=== PATIENT | female | born 1940 | race Caucasian/White ===

== ENCOUNTER 2017-01-01 18:57 | Emergency (ER) | payer OTHER ==
[2017-01-01] MEDS ORDERED: ASPIRIN 81 MG CHEWABLE TABLETS PO ONE (19:22)
--- NOTE | 2017-01-01 19:22 | PDOC ---
History of Present Illness <AnabelleMorenita - Last Filed: 01/01/17 21:16> <Valerie Vera Sasha - Last Filed: 01/02/17 01:47> - General Chief Complaint: Chest Pain Stated Complaint: CHEST PAIN - History of Present Illness Initial Comments: 01/01/17 21:01 Patient is a 76 year old female with significant medical hx of asthma, HTN and HLD who is presenting to the ED with chest pain and cough intermittently for the past two weeks. Patient is accompanied by daughter who reports the patient has been having a dry, hacking cough that has caused exacerbation of her asthma. The patient recently finished a ten day course of Levaquin and prednisone for her cough but is still experiencing symptoms. The patient also complains of progressive chest pain thats non-radiating and localized across her entire chest. She states that her chest pain reoccurs every 15 minutes. The patient came to the ED tonight because her pain worsened this afternoon. Denies nausea, vomiting, shortness of breath, fever, chills, and diaphoresis. Patient's last stress test and echocardiogram was last year. Allergies: Benadryl Surgical Hx: bilateral carpal tunnel, hysterectomy Social Hx: Denies tobacco, alcohol, or drug use PMD: Michelle Saucedo MD Oral Surgeon: Brian Chu MD (AnabelleMorenita) Past History <Morenita Ahn - Last Filed: 01/01/17 21:16> - Past Medical History Asthma: Yes Diabetes: Yes (steroids induced) HTN: Yes Hypercholesterolemia: Yes Other medical history: arithritis - Immunization History Immunization Up to Date: No - Psycho/Social/Smoking Cessation Hx Anxiety: Yes Suicidal Ideation: No Smoking History: Never smoked Have you smoked in the past 12 months: No Number of Cigarettes Smoked Daily: 0 Cigars Per Day: 0 Information on smoking cessation initiated: No Hx Alcohol Use: No Drug/Substance Use Hx: No Substance Use Type: None <ChuyJonkelsey Baez - Last Filed: 01/02/17 01:47> - Past Medical History Allergies/Adverse Reactions: Allergies Allergy/AdvReac Type Severity Reaction Status Date / Time diphenhydramine HCl Allergy Verified 01/01/17 19:05 [From Benadryl] Home Medications: Ambulatory Orders Albuterol 2.5/Ipratropium 0.5 [Duoneb -] 1 neb NEB Q4H 01/01/17 Amlodipine Besylate [Norvasc -] 10 mg PO DAILY 01/01/17 Atorvastatin Calcium [Lipitor] 10 mg PO DAILY 01/01/17 Glipizide 5 mg PO DAILY 01/01/17 Metoprolol Tartrate 25 mg PO DAILY 01/01/17 Review of Systems <Morenita Ahn - Last Filed: 01/01/17 21:16> <Valerie Vera - Last Filed: 01/02/17 01:47> - Review of Systems Comments:: 01/01/17 21:10 CONSTITUTIONAL: Absent: fever, chills, diaphoresis, generalized weakness, malaise, loss of appetite HEENT: Absent: rhinorrhea, nasal congestion, throat pain, throat swelling, difficulty swallowing, mouth swelling, ear pain, eye pain, visual changes CARDIOVASCULAR: Present: chest pain Absent: syncope, palpitations, irregular heart rate, lightheadedness, peripheral edema RESPIRATORY: Present: dry cough Absent: shortness of breath, dyspnea with exertion, orthopnea, wheezing, stridor , hemoptysis GASTROINTESTINAL: Absent: abdominal pain, abdominal distension, nausea, vomiting, diarrhea, constipation, melena, hematochezia GENITOURINARY: Absent: dysuria, frequency, urgency, hesitancy, hematuria, flank pain, genital pain MUSCULOSKELETAL: Absent: myalgia, arthralgia, joint swelling SKIN: Absent: rash, itching, pallor HEMATOLOGIC/IMMUNOLOGIC: Absent: easy bleeding, easy bruising, lymphadenopathy, frequent infections ENDOCRINE: Absent: unexplained weight gain, unexplained weight loss, heat intolerance, cold intolerance NEUROLOGIC: Absent: headache, focal weakness or paresthesia, dizziness, unsteady gait, seizure, mental status changes, bladder or bowel incontinence. PSYCHIATRIC: Absent: anxiety, depression, suicidal or homicidal ideation, hallucinations (Morenita Ahn) *Physical Exam <Morenita Ahn - Last Filed: 01/01/17 21:16> <Valerie Vera - Last Filed: 01/02/17 01:47> - Vital Signs Last Vital Signs Temp Pulse Resp BP Pulse Ox 98.8 F 75 22 157/79 96 01/01/17 19:24 01/01/17 19:24 01/01/17 19:24 01/01/17 19:24 01/01/17 19:24 - Physical Exam Comments: 01/01/17 21:11 GENERAL: Well developed, well nourished. Awake and alert. No acute distress. HEENT: Normocephalic, atraumatic. PERRLA, EOMI. No conjunctival pallor. Sclera are non- icteric. Moist mucous membranes. Oropharynx is clear. NECK: Supple. Full ROM. No JVD. Carotid pulses 2+ and symmetric, without bruits. No thyromegaly. No lymphadenopathy. CARDIOVASCULAR: Regular rate and rhythm. No murmurs, rubs, or gallops. No bruits. Distal pulses are 2+ and symmetric. PULMONARY: No evidence of respiratory distress. Minimal expiratory wheeze to the right. No rales or rhonchi. ABDOMINAL: Soft. Non-tender. Non-distended. No rebound or guarding. No organomegaly. Normoactive bowel sounds. MUSCULOSKELETAL: Normal range of motion at all joints. No bony deformities or tenderness. No CVA tenderness. EXTREMITIES: No cyanosis. No clubbing. No edema. No calf tenderness. SKIN: Warm and dry. Normal capillary refill. No rashes. No jaundice. NEUROLOGICAL: Alert, awake, appropriate. Cranial nerves 2-12 intact. Normal speech. Gait is normal without ataxia. PSYCHIATRIC: Cooperative. Good eye contact. Appropriate mood and affect. (Morenita Ahn) Heart Score/ECG Review <Morenita Ahn - Last Filed: 01/01/17 21:16> <Valerie Vera - Last Filed: 01/02/17 01:47> #1 01/01/17 21:26 Poor data quality, interpretation may be adversely affected Normal sinus rhythm at 82 bpm Left axis deviation Abnormal ECG (Morenita Ahn) ED Treatment Course - LABORATORY CBC & Chemistry Diagram: 01/01/17 20:40 01/01/17 20:40 <Morenita Ahn - Last Filed: 01/01/17 21:16> - LABORATORY CBC & Chemistry Diagram: 01/01/17 20:40 01/01/17 20:40 <Valerie Vera - Last Filed: 01/02/17 01:47> - ADDITIONAL ORDERS Additional order review: Laboratory Results 01/02/17 01/01/17 01/01/17 00:48 20:40 20:40 INR Sodium 137 Potassium 4.0 Chloride 99 Carbon Dioxide 32 Anion Gap 6 L BUN 13 Creatinine 0.9 Creat Clearance w eGFR > 60 Random Glucose 156 H D Calcium 9.5 Magnesium 1.7 L Total Bilirubin 0.3 D AST 13 L ALT 25 Alkaline Phosphatase 112 D Creatine Kinase 49 49 Troponin I < 0.02 < 0.02 B-Natriuretic Peptide 103.01 Total Protein 6.9 Albumin 3.6 01/01/17 20:40 INR 1.12 Sodium Potassium Chloride Carbon Dioxide Anion Gap BUN Creatinine Creat Clearance w eGFR Random Glucose Calcium Magnesium Total Bilirubin AST ALT Alkaline Phosphatase Creatine Kinase Troponin I B-Natriuretic Peptide Total Protein Albumin 01/01/17 20:40 RBC 4.21 MCV 85.1 MCHC 33.9 RDW 14.1 MPV 7.6 Neutrophils % 62.9 D Lymphocytes % 20.1 D Monocytes % 9.6 Eosinophils % 7.0 H D Basophils % 0.4 - RADIOLOGY Radiology Studies Ordered: Category Date Time Status CHEST X-RAY PORTABLE* [RAD] Stat Radiology 01/01/17 19:23 Taken - Medications Given in the ED: ED Medications Discontinued Medications Generic Name Dose Route Start Last Admin Trade Name Freq PRN Reason Stop Dose Admin Albuterol/Ipratropium 1 amp 01/01/17 20:27 01/01/17 20:45 Duoneb - NEB 01/01/17 20:28 1 amp ONCE ONE Administration Aspirin 162 mg 01/01/17 19:22 01/01/17 20:21 Asa - PO 01/01/17 19:23 162 mg ONCE ONE Administration Magnesium Sulfate 1 gm 01/02/17 00:31 01/02/17 01:25 Magnesium Sulfate IVPB 01/02/17 00:32 1 gm ONCE ONE Administration *DC/Admit/Observation/Transfer <Morenita Ahn - Last Filed: 01/01/17 21:16> <Valerie Vera - Last Filed: 01/02/17 01:47> Diagnosis at time of Disposition: Chest pain Qualifiers: Chest pain type: unspecified Qualified Code(s): R07.9 - Chest pain, unspecified - Discharge Dispostion Disposition: HOME Condition at time of disposition: Stable - Patient Instructions Printed Discharge Instructions: DI for Atypical Chest Pain Additional Instructions: please follow up with your primary physician - Attestations Scribe Attestion: 01/01/17 21:13 Documentation prepared by Morenita Ahn, acting as biomedical service engineer for Valerie Vera MD. (Morenita Ahn)
[2017-01-01] MEDS ORDERED: ASPIRIN 81 MG CHEWABLE TABLETS ONE (19:41)
[2017-01-01 20:00] VITALS: BP 157/79; PULSE 75; TEMP 98.8; BMI 24.8
[2017-01-01] MEDS ORDERED: ALBUTEROL SO4 2.5/IPRATROPIUM 0.5 INH SOL 3 ML VIAL.NEB. NEB ONE ×2 (20:27→20:46)
[2017-01-01 20:53] LABS: BASOPHIL 0.4 % (0-2.0); MCH 28.9 pg (25.7-33.7); MCHC 33.9 g/dl (32.0-36.0); MEAN CELL VOLUME 85.1 fl (80-96); MEAN PLT VOLUME 7.6 fl (7.5-11.1); NEUTROPHILS 62.9 % (42.8-82.8); PLATELET COUNT 266 K/MM3 (134-434); RDW 14.1 % (11.6-15.6); WHITE BLOOD COUNT 11.2 K/mm3 (4.0-10.0)
[2017-01-01 21:12] LABS: INR 1.12 (0.82-1.09); PROTHROMBIN TIME (PATIENT) 12.4 SEC (9.98-11.88)
[2017-01-01 21:21] LABS: ALBUMIN 3.6 g/dl (3.4-5.0); ANION GAP 6 (8-16); CALCIUM 9.5 mg/dL (8.5-10.1); CO2 32 mmol/L (21-32); CREATININE 0.9 mg/dL (0.55-1.02); GLUCOSE,RANDOM 156 mg/dL (74-106); MAGNESIUM 1.7 mg/dL (1.8-2.4); SGOT/AST 13 U/L (15-37); SGPT/ALT 25 U/L (12-78)
[2017-01-01 21:25] LABS: ALK PHOS 112 U/L (45-117); BILIRUBIN,TOTAL 0.3 mg/dL (0.2-1.0); TOT PROT 6.9 g/dl (6.4-8.2); TROPONIN I < 0.02 ng/ml (0.00-0.05)
[2017-01-02] MEDS ORDERED: MAGNESIUM SULF 50% (8.12 MEQ/2 ML-1 GM VIAL) IVPB ONE (00:31)
[2017-01-02] MEDS ORDERED: MAGNESIUM SULF 50% (8.12 MEQ/2 ML-1 GM VIAL) ONE (01:15)
[2017-01-02 01:30] LABS: TROPONIN I < 0.02 ng/ml (0.00-0.05)
[2017-01-02] MEDS ORDERED: ALBUTEROL SO4 0.083% IH SOL 2.5 MG/3 ML VIAL.NEB. NEB ONE (01:56)
--- NOTE | 2017-01-02 13:17 | EKG ---
Test Reason : Blood Pressure : / mmHG Vent. Rate : 082 BPM Atrial Rate : 082 BPM P-R Int : 154 ms QRS Dur : 092 ms QT Int : 330 ms P-R-T Axes : 062 -32 054 degrees QTc Int : 385 ms NORMAL SINUS RHYTHM LEFT AXIS DEVIATION ABNORMAL ECG WHEN COMPARED WITH ECG OF 12-JAN-2016 05:33, Confirmed by NICOLE DELEON MD ([id number]) on 01/02/2017 1:16:50 PM Referred By: Confirmed By:NICOLE DELEON MD
== END 2017-01-02 02:33 | disposition home or self-care (01) ==
LOC: JER 18:57
PROC: 3E0F7GC Introduction of Other Therapeutic Substance into Respiratory Tract, Via Natural or Artificial Opening (ICD-10-PCS; principal; 2017-01-01)
PROC: 3E033GC Introduction of Other Therapeutic Substance into Peripheral Vein, Percutaneous Approach (ICD-10-PCS; 2017-01-01)
DX: R07.89 Other chest pain (principal); I10 Essential (primary) hypertension; E78.00 Pure hypercholesterolemia, unspecified; M12.9 Arthropathy, unspecified; E09.9 Drug or chemical induced diabetes mellitus without complications; T38.0X5A Adverse effect of glucocorticoids and synthetic analogues, initial encounter; Y92.89 Other specified places as the place of occurrence of the external cause; Z79.84 Long term (current) use of oral hypoglycemic drugs
CPT/HCPCS: 36415; 71010-TC; 80053; 82550; 83735; 83880; 84484; 85025; 85610; 93005; 93010; 94640; 96374; 96375; 99282-25

== ENCOUNTER 2017-12-25 12:30 | Emergency (ER) | payer OTHER ==
[2017-12-25 12:46] VITALS: TEMP 98.5; BMI 25.9
[2017-12-25 14:16] LABS: URINE APPEARANCE CLEAR; URINE BILIRUBIN NEGATIVE (NEGATIVE); URINE BLOOD NEGATIVE (NEGATIVE); URINE COLOR YELLOW; URINE GLUCOSE (UA) NEGATIVE (NEGATIVE); URINE KETONE NEGATIVE (NEGATIVE); URINE LEUK ESTERASE TRACE (NEGATIVE); URINE NITRITE NEGATIVE (NEGATIVE)
[2017-12-25 14:17] LABS: URINE PROTEIN 1+ (NEGATIVE)
[2017-12-25 14:18] LABS: BASO % 0.6 % (0-2.0); EOS % 2.1 % (0-4.5); HEMATOCRIT 37.7 % (32.4-45.2); HEMOGLOBIN 12.2 GM/dL (10.7-15.3); LYMPH % 10.6 % (8-40); MCH 28.5 pg (25.7-33.7); MCHC 32.5 g/dl (32.0-36.0); MEAN CELL VOLUME 87.9 fl (80-96); MEAN PLT VOLUME 8.1 fl (7.5-11.1); MONO % 7.6 % (3.8-10.2); NEUT % 79.1 % (42.8-82.8); PLATELET COUNT 292 K/MM3 (134-434); RBC 4.29 M/mm3 (3.60-5.2); RDW 13.4 % (11.6-15.6); WHITE BLOOD COUNT 13.1 K/mm3 (4.0-10.0)
--- NOTE | 2017-12-25 14:18 | PDOC ---
History of Present Illness - General History Source: Patient - History of Present Illness Initial Comments: 12/25/17 14:13 77F with pmh of HTN, HLD and DM2 transfered from [facility] to the ER following a fall on the back of the head after she jumping on a stool trying to reach an overhead object and losing her footing. She fell backward and hit the back of her head. No LOC, no nausea, vomiting or focal deficits. Denies feeling dizzy or lightheaded. <Gera Mckeon - Last Filed: 12/25/17 14:13> <Yesika Mays - Last Filed: 12/25/17 15:37> - General Chief Complaint: Injury Stated Complaint: FALL Time Seen by Provider: 12/25/17 13:13 Past History - Past Medical History Asthma: Yes COPD: No Diabetes: Yes (steroids induced) HTN: Yes Hypercholesterolemia: Yes - Immunization History Immunization Up to Date: No - Suicide/Smoking/Psychosocial Hx Smoking History: Never smoked Have you smoked in the past 12 months: No Number of Cigarettes Smoked Daily: 0 Cigars Per Day: 0 Information on smoking cessation initiated: No Hx Alcohol Use: No Drug/Substance Use Hx: No Substance Use Type: None <Gera Mckeon - Last Filed: 12/25/17 14:13> <Yesika Mays - Last Filed: 12/25/17 15:37> - Past Medical History Allergies/Adverse Reactions: Allergies Allergy/AdvReac Type Severity Reaction Status Date / Time diphenhydramine HCl Allergy Verified 12/25/17 12:46 [From Benadryl] Home Medications: Ambulatory Orders Albuterol 2.5/Ipratropium 0.5 [Duoneb -] 1 neb NEB Q4H 01/01/17 Amlodipine Besylate [Norvasc -] 10 mg PO DAILY 01/01/17 Atorvastatin Calcium [Lipitor] 10 mg PO DAILY 01/01/17 Glipizide 5 mg PO DAILY 01/01/17 Metoprolol Tartrate 25 mg PO DAILY 01/01/17 Review of Systems - Review of Systems Able to Perform ROS?: Yes Is the patient limited Japanese proficient: No Constitutional: No: Symptoms Reported HEENTM: No: Symptoms Reported Respiratory: No: Symptoms reported Cardiac (ROS): No: Symptoms Reported ABD/GI: No: Symptoms Reported : No: Symptoms Reported Musculoskeletal: No: Symptoms Reported Integumentary: No: Symptoms Reported Neurological: No: Symptoms reported All Other Systems: Reviewed and Negative <Gera Mckeon - Last Filed: 12/25/17 14:13> *Physical Exam - Vital Signs Last Vital Signs Temp Pulse Resp BP Pulse Ox 98.5 F 75 18 148/78 100 12/25/17 12:41 12/25/17 12:41 12/25/17 12:41 12/25/17 12:41 12/25/17 12:41 - Physical Exam General Appearance: Yes: Nourished, Appropriately Dressed. No: Apparent Distress HEENT: positive: EOMI, SHA, Other (small bump on back of head. No skin break.) Respiratory/Chest: positive: Lungs Clear, Normal Breath Sounds. negative: Chest Tender, Respiratory Distress Cardiovascular: positive: Regular Rhythm, Regular Rate, S1, S2 Gastrointestinal/Abdominal: positive: Normal Bowel Sounds, Flat, Soft. negative : Tender Musculoskeletal: positive: Normal Inspection. negative: CVA Tenderness Extremity: positive: Normal Capillary Refill, Normal Inspection, Normal Range of Motion Integumentary: positive: Normal Color, Dry, Warm Neurologic: positive: Fully Oriented, Alert, Normal Mood/Affect, Normal Response , Motor Strength 5/5. negative: Confused, Disoriented <Gera Mckeon - Last Filed: 12/25/17 14:13> - Vital Signs Last Vital Signs Temp Pulse Resp BP Pulse Ox 98.5 F 75 18 148/78 100 12/25/17 12:41 12/25/17 12:41 12/25/17 12:41 12/25/17 12:41 12/25/17 12:41 <Yesika Mays - Last Filed: 12/25/17 15:37> ED Treatment Course - LABORATORY CBC & Chemistry Diagram: 12/25/17 13:22 12/25/17 13:22 <Gera Mckeon - Last Filed: 12/25/17 14:13> - LABORATORY CBC & Chemistry Diagram: 12/25/17 13:22 12/25/17 13:22 - ADDITIONAL ORDERS Additional order review: Laboratory Results 12/25/17 12/25/17 12/25/17 13:22 13:22 13:22 Sodium 139 Potassium 4.2 Chloride 103 Carbon Dioxide 30 Anion Gap 6 L BUN 16 Creatinine 0.8 Creat Clearance w eGFR > 60 Random Glucose 112 H Calcium 9.3 Total Bilirubin 0.4 D AST 20 ALT 25 Alkaline Phosphatase 121 H Creatine Kinase 108 Troponin I < 0.02 Total Protein 8.0 Albumin 4.4 Urine Color Yellow Urine Appearance Clear Urine pH 5.0 Ur Specific [place] 1.020 Urine Protein 1+ H Urine Glucose (UA) Negative Urine Ketones Negative Urine Blood Negative Urine Nitrite Negative Urine Bilirubin Negative Urine Urobilinogen 2.0 H Ur Leukocyte Esterase Trace Urine WBC (Auto) 1 Urine RBC (Auto) <1 Ur Epithelial Cells Rare Urine Mucus Rare Blood Type B POSITIVE Antibody Screen Negative 12/25/17 13:22 RBC 4.29 MCV 87.9 MCHC 32.5 RDW 13.4 MPV 8.1 Neutrophils % 79.1 D Lymphocytes % 10.6 D Monocytes % 7.6 Eosinophils % 2.1 Basophils % 0.6 <Yesika Mays - Last Filed: 12/25/17 15:37> Medical Decision Making - Medical Decision Making 12/25/17 14:22 Full workup ordered by [facility] pending including basic labs, EKG, head ct. UA negative <Gera Mckeon - Last Filed: 12/25/17 14:13> *DC/Admit/Observation/Transfer <Gera Mckeon - Last Filed: 12/25/17 14:13> - Discharge Dispostion Admit: No <Yesika Mays - Last Filed: 12/25/17 15:37> Diagnosis at time of Disposition: Head injury Qualifiers: Encounter type: initial encounter Qualified Code(s): S09.90XA - Unspecified injury of head, initial encounter - Discharge Dispostion Disposition: HOME Condition at time of disposition: Stable - Patient Instructions Printed Discharge Instructions: DI for Closed Head Injury
[2017-12-25 14:38] LABS: ALBUMIN 4.4 g/dl (3.4-5.0); ANION GAP 6 (8-16); BILIRUBIN,TOTAL 0.4 mg/dL (0.2-1.0); BLOOD UREA NITROGEN 16 mg/dL (7-18); CALCIUM 9.3 mg/dL (8.5-10.1); CHLORIDE 103 mmol/L (98-107); CO2 30 mmol/L (21-32); CREATININE 0.8 mg/dL (0.55-1.02); GLUCOSE,RANDOM 112 mg/dL (74-106); POTASSIUM 4.2 mmol/L (3.5-5.1); SGOT/AST 20 U/L (15-37); SGPT/ALT 25 U/L (12-78); SODIUM 139 mmol/L (136-145)
[2017-12-25 14:40] LABS: ALK PHOS 121 U/L (45-117)
[2017-12-25 14:45] LABS: INR 1.03 (0.82-1.09); PROTHROMBIN TIME (PATIENT) 11.6 SEC (9.98-11.88)
[2017-12-25 14:48] LABS: EPI CELLS RARE /HPF (FEW); URINE MUCUS RARE
--- NOTE | 2017-12-25 15:36 | PDOC ---
Attending Attestation - Resident Resident Name: MikeGera - ED Attending Attestation I have performed the following: I have examined & evaluated the patient, The case was reviewed & discussed with the resident, I agree w/resident's findings & plan, Exceptions are as noted <Yesika Mays - Last Filed: 12/25/17 15:36> - HPI HPI: 12/25/17 15:44 The patient is a 77 year old female with a significant PMH of HTN, HLD, and DM2 who presents to the emergency department after a fall today. The patient states she was on a stool trying to reach an object and fell backwards. The patient endorses head trauma but denies any other injuries. The patient denies LOC, dizziness, lightheadedness, chest pain, shortness of breath, and headache. Denies fever, chills, nausea, vomit, diarrhea and constipation. Denies dysuria, frequency, urgency and hematuria. Allergies: NKA Past surgical history: None reported Social history: No reported alcohol, drug or cigarette use. <Kirsten Campa - Last Filed: 12/25/17 15:46>
[2017-12-25 15:51] VITALS: BP 157/87; PULSE 70
--- NOTE | 2017-12-26 17:10 | EKG ---
Test Reason : Blood Pressure : / mmHG Vent. Rate : 066 BPM Atrial Rate : 066 BPM P-R Int : 152 ms QRS Dur : 098 ms QT Int : 392 ms P-R-T Axes : 066 -32 046 degrees QTc Int : 410 ms NORMAL SINUS RHYTHM LEFT AXIS DEVIATION ABNORMAL ECG WHEN COMPARED WITH ECG OF 01-JAN-2017 19:05, NO SIGNIFICANT CHANGE WAS FOUND Confirmed by JONO RING MD ([id number]) on 12/26/2017 5:09:59 PM Referred By: LINDA Confirmed By:JONO RING MD
== END 2017-12-25 15:56 | disposition home or self-care (01) ==
LOC: JER 12:30 → JERFT 12:30 → JER 15:56
DX: S09.8XXA Other specified injuries of head, initial encounter (principal); W07.XXXA Fall from chair, initial encounter; Y93.89 Activity, other specified; Y92.018 Other place in single-family (private) house as the place of occurrence of the external cause; I10 Essential (primary) hypertension; E78.00 Pure hypercholesterolemia, unspecified; E09.9 Drug or chemical induced diabetes mellitus without complications; T38.0X5A Adverse effect of glucocorticoids and synthetic analogues, initial encounter; Z79.84 Long term (current) use of oral hypoglycemic drugs
CPT/HCPCS: 36415; 70450-TC; 71045-TC-FY; 80053; 81003; 81015; 82550; 84484; 85025; 85610; 86850; 86900; 86901; 93005; 93010; 99283-25

== ENCOUNTER 2020-05-05 09:07 | Emergency (ER) | payer OTHER ==
--- NOTE | 2020-05-05 09:14 | PDOC ---
Rapid Medical Evaluation Time Seen by Provider: 05/05/20 09:11 Medical Evaluation: Allergies Allergy/AdvReac Type Severity Reaction Status Date / Time diphenhydramine HCl Allergy Verified 12/25/17 12:46 [From Benadryl] 05/05/20 09:11 Pt presents for evaluation of bleeding gums starting at 2:30 this am. She admits to aspirin use. Denies recent dental procedure. Did not take her aspirin today Exam: gauze in place to the R lower gum, airway intact Orders: labs Pt to proceed to the ER for further evaluation Discharge Disposition - Diagnosis Bleeding gums - Referrals - Patient Instructions - Post Discharge Activity
[2020-05-05 09:27] VITALS: BP 130/73; PULSE 77; TEMP 98.9; BMI 34.2
--- NOTE | 2020-05-05 10:01 | PDOC ---
History of Present Illness - General Chief Complaint: Toothache Stated Complaint: BLEEDING GUMS Time Seen by Provider: 05/05/20 09:11 History Source: Patient, Other (son) - History of Present Illness Is this a multiple visit Asthma Patient?: No Timing/Duration: resolved prior to arrival Past History - Medical History Allergies/Adverse Reactions: Allergies Allergy/AdvReac Type Severity Reaction Status Date / Time diphenhydramine HCl Allergy Verified 05/05/20 09:11 [From Benadryl] Home Medications: Ambulatory Orders Albuterol 2.5/Ipratropium 0.5 [Duoneb -] 1 neb NEB Q4H 01/01/17 Amlodipine Besylate [Norvasc -] 10 mg PO DAILY 01/01/17 Atorvastatin Calcium [Lipitor] 10 mg PO DAILY 01/01/17 Glipizide 5 mg PO DAILY 01/01/17 Metoprolol Tartrate 25 mg PO DAILY 01/01/17 Asthma: Yes COPD: No Diabetes: Yes (steroids induced) HTN: Yes Hypercholesterolemia: Yes - Immunization History Immunization Up to Date: No - Psycho-Social/Smoking History Smoking History: Never smoked Have you smoked in the past 12 months: No Number of Cigarettes Smoked Daily: 0 Cigars Per Day: 0 - Substance Abuse Hx (Audit-C & DAST Scrn) How often the patient has a drink containing alcohol: Never Score: In Men: 4 or > Positive; In Women: 3 or > Positive: 0 Screen Result (Pos requires Nsg. Audit-10AR): Negative In the last yr the pt used illegal drug/Rx for NonMed reason: No Score: Yes response is considered Positive: 0 Screen Result (Positive result requires Nsg. DAST-10): Negative Review of Systems - Review of Systems Constitutional: No: Weakness HEENTM: No: Mouth Pain *Physical Exam - Vital Signs Last Vital Signs Temp Pulse Resp BP Pulse Ox 98.9 F 77 20 130/73 98 05/05/20 09:12 05/05/20 09:12 05/05/20 09:12 05/05/20 09:12 05/05/20 09:12 - Physical Exam General Appearance: Yes: Appropriately Dressed. No: Apparent Distress HEENT: positive: Normal Voice, Other (blood clot along R lower gumline, no active bleed, R lower partial noted) Neck: positive: Supple Respiratory/Chest: negative: Respiratory Distress Integumentary: positive: Dry, Warm Neurologic: positive: Fully Oriented, Alert, Normal Mood/Affect ED Treatment Course - LABORATORY CBC & Chemistry Diagram: 05/05/20 09:30 05/05/20 09:30 Medical Decision Making - Medical Decision Making 05/05/20 09:56 79 yo F, HTN on baby asa, has lower dental partial in, BIB son for gum bleeding this am. Pt states R lower gum started spontaneously bleeding this am and has been on and off since, currently controlled w/ a piece of gauze to site. No trauma. No h/o same see exam Spon bleeding gums this am Since resolved On baby asa No trauma Stable w/ blood clot along R lower gum, at site of R lower partial Will check basic labs Son states pt will see her dentist today 05/05/20 10:41 Labs unremarkable. No active bleeding on reassessment. Clot in place. Per pt's son, to f/u with dentist today. Reasons to return d/w pt and son. Pt given copy of lab work Discharge - Discharge Information Problems reviewed: Yes Clinical Impression/Diagnosis: Bleeding gums Condition: Good Disposition: HOME - Follow up/Referral Referrals: Livia Hess MD [Primary Care Provider] - - Patient Discharge Instructions Additional Instructions: Please follow up with your dentist today and return to ED for any worsening in bleeding Your labs were normal - Post Discharge Activity
[2020-05-05 10:08] LABS: BASO % 0.5 % (0-2.0); EOS % 0.5 % (0-4.5); HEMATOCRIT 33.7 % (32.4-45.2); HEMOGLOBIN 11.1 GM/dL (10.7-15.3); LYMPH % 21.2 % (8-40); MCH 29.4 pg (25.7-33.7); MEAN CELL VOLUME 89.3 fl (80-96); MEAN PLT VOLUME 8.3 fl (7.5-11.1); MONO % 11.2 % (3.8-10.2); NEUT % 66.6 % (42.8-82.8); PLATELET COUNT 289 K/MM3 (134-434); RBC 3.77 M/mm3 (3.60-5.2); RDW 13.9 % (11.6-15.6); WHITE BLOOD COUNT 10.8 K/mm3 (4.0-10.0)
[2020-05-05 10:28] LABS: INR 0.97 (0.83-1.09); PROTHROMBIN TIME (PATIENT) 11.5 SEC (9.7-13.0)
[2020-05-05 10:39] LABS: ALBUMIN 3.9 g/dl (3.4-5.0); BILIRUBIN,TOTAL 0.5 mg/dL (0.2-1); BLOOD UREA NITROGEN 24.6 mg/dL (7-18); CALCIUM 9.3 mg/dL (8.5-10.1); POTASSIUM 3.9 mmol/L (3.5-5.1); TOT PROT 7.3 g/dl (6.4-8.2)
[2020-05-05 10:45] LABS: CREATININE 0.9 mg/dL (0.55-1.3)
== END 2020-05-05 10:45 | disposition home or self-care (01) ==
LOC: JER 09:07
DX: K06.8 Other specified disorders of gingiva and edentulous alveolar ridge (principal)
CPT/HCPCS: 36415; 80053; 85025; 85610; 99283-25

== ENCOUNTER 2021-11-12 14:34 | Emergency (ER) | payer OTHER | END 2021-11-12 14:50 | disposition home or self-care (01) | LOC: JVIRT 14:34 | DX: U07.1 COVID-19 (principal) | CPT/HCPCS: 87804; C9803-CS; Q3014-GT; U0003; U0005 ==

== ENCOUNTER 2025-06-02 11:17 | Emergency (ER) | payer OTHER ==
[2025-06-02 13:06] VITALS: BMI 19.2
[2025-06-02 13:40] LABS: MCHC 32.7 g/dl (32.2-35.5); MEAN CELL VOLUME 89.7 fl (79.4-94.8); MEAN PLT VOLUME 9.5 fl (9.4-12.3); RDW 13.1 % (12.5-17.0)
[2025-06-02 13:44] LABS: EPI CELLS 3 /uL (0-25.1); HYALINE CASTS 0 /uL (0-3.1); URINE APPEARANCE CLEAR; URINE BACTERIA 2 /uL (0-1359); URINE BILIRUBIN NEGATIVE (NEGATIVE); URINE COLOR YELLOW; URINE GLUCOSE (UA) NEGATIVE (NEGATIVE); URINE KETONE NEGATIVE (NEGATIVE); URINE LEUK ESTERASE NEGATIVE (NEGATIVE); URINE NITRITE NEGATIVE (NEGATIVE); URINE PROTEIN 2+ (NEGATIVE); URINE RBC 5 /uL (0-23.9); URINE UROBILINOGEN 0.2 mg/dL (0.2-1.0); URINE WBC 1 /uL (0-25.8)
[2025-06-02 14:14] LABS: CO2 32.0 mmol/L (21-32); GLUCOSE,RANDOM 76.0 mg/dL (74-106)
[2025-06-02 14:17] LABS: CREATININE 0.9 mg/dL (0.55-1.3); SGOT/AST 15.0 U/L (15-37); SGPT/ALT 17.0 U/L (13-61)
[2025-06-02 14:18] LABS: TOT PROT 6.5 g/dl (6.4-8.2)
[2025-06-02 14:19] LABS: ALK PHOS 71.0 U/L (45-117)
[2025-06-02] MEDS ORDERED: ACETAMINOPHEN INJECTION 100 ML ONE (14:34)
[2025-06-02] MEDS: SODIUM CHLORIDE 0.9% 1000 ML INFUS.BAG IV ONE (14:52)
[2025-06-02] MEDS: ACETAMINOPHEN 1000 MG/100 ML BAG IVPB ONE (14:53)
[2025-06-02 15:13] VITALS: RESP 17; TEMP 98
[2025-06-02 16:18] VITALS: BP 157/60; PULSE 61
== END 2025-06-02 18:48 | disposition home or self-care (01) ==
LOC: JER 11:17
PROC: 3E033NZ Introduction of Analgesics, Hypnotics, Sedatives into Peripheral Vein, Percutaneous Approach (ICD-10-PCS; principal; 2025-06-02)
DX: R53.1 Weakness (principal); R42 Dizziness and giddiness; H53.8 Other visual disturbances; R63.8 Other symptoms and signs concerning food and fluid intake; R26.81 Unsteadiness on feet
CPT/HCPCS: 36415; 70450-TC; 70496-TC; 70498-TC; 71045-TC-FY; 80053; 81003; 82550; 83735; 83880; 84100; 84484; 85027; 87086; 93005; 93010; 96374; 99285-25; Q9967